=== PATIENT | female | born 1960 | race Caucasian/White ===

== ENCOUNTER 2017-09-24 12:34 | Emergency (ER) | payer BC ==
[2017-09-24] MEDS ORDERED: ASPIRIN 81 MG CHEWABLE TABLET ONE (13:20)
--- NOTE | 2017-09-24 13:22 | EKG ---
Test Date: 2017-09-24 Test Time: 12:43:47 Weight And Balance Control Agent: ARELIS MEASUREMENT RESULTS: Intervals: Rate: 87 MO: 154 QRSD: 76 QT: 388 QTc: 466 [place]: P: 54 MO: 154 QRS: 42 T: 64 INTERPRETIVE STATEMENTS: Normal sinus rhythm Normal ECG Compared to ECG 09/21/2010 13:46:33 Sinus bradycardia no longer present Electronically Signed On 09-24-17 13:22:08 CDT by Aime Galidno
[2017-09-24 13:26] LABS: Absolute Lymphocytes (CBC) 1.9 K/uL (0.7-4.9); Absolute Monocytes 0.5 K/uL (0.1-1.3); Absolute Neutrophil 3.9 K/uL (1.8-8.0); Basophils % 0.5 % (0-1.3); Eosinophils % 0.8 % (0-4.4); Lymphocytes % 29.4 % (15.3-44.8); MCH 30.5 pg (27.0-35.0); MCV 88.4 fL (80-100); MPV 7.7 fL (7.6-11.3); RBC Red Blood Cell Count 4.86 M/uL (3.86-4.86)
[2017-09-24 13:36] LABS: Protime INR 0.94
[2017-09-24 13:46] LABS: ALT/SGPT 74 U/L (12-78); AST/SGOT 52 U/L (15-37); Albumin 4.4 g/dL (3.4-5.0); Alkaline Phosphatase 115 U/L (45-117); BUN Blood Urea Nitrogen 9 mg/dL (7-18); Bicarbonate 23 mmol/L (21-32); Bilirubin Direct 0.1 mg/dL (0-0.2); Bilirubin Total 0.5 mg/dL (0.2-1.0); CKMB Creatine Kinase MB < 1.0 ng/mL (0.3-3.6); Creatine Phosphokinase 101 U/L (26-192); Glucose Level 115 mg/dL (74-106); Magnesium 2.3 mg/dL (1.8-2.4); NT PRO-BNP 11 pg/mL (<125); Potassium 3.3 mmol/L (3.5-5.1); Protein, Total 7.4 g/dL (6.4-8.2); Sodium Level 139 mmol/L (136-145)
--- NOTE | 2017-09-24 14:30 | RAD REPORT ---
EXAM DESCRIPTION: [place] Single View09/24/2017 2:06 pm CLINICAL HISTORY: Chest pain COMPARISON: March 2016 FINDINGS: The lungs appear clear of acute infiltrate. The heart is normal size IMPRESSION: No acute abnormalities displayed
--- NOTE | 2017-09-24 16:33 | ER ---
Nurse's Notes [facility] Name: Karley Trent Age: 56 yrs Sex: Female : 1960 Arrival Date: 09/24/2017 Time: 12:41 Bed 23 Private MD: Diagnosis: Chest pain, unspecified Presentation: 09/24 12:42 Presenting complaint: Patient states: chest pain that began approx 40 minutes ago ss 10/10, resolved within thirty minutes. Upon EMS arrival, pain was 2/10. Transition of care: patient was not received from another setting of care. Onset of symptoms was September 24, 2017. Risk Assessment: Do you want to hurt yourself or someone else? Patient reports no desire to harm self or others. Initial Sepsis Screen: Does the patient meet any 2 criteria? No. Patient's initial sepsis screen is negative. Does the patient have a suspected source of infection? No. Patient's initial sepsis screen is negative. Care prior to arrival: Medication(s) given: ASA, 325 mg, x 1. 12:42 Method Of Arrival: EMS: [facility] ss 12:42 Acuity: YEIMI 3 ss Historical: - Allergies: 12:44 No Known Allergies; ss - Home Meds: 12:44 None [Active]; ss - PMHx: 12:44 None; ss - PSHx: 12:44 Tonsillectomy; Adenoids; ovarian cyst rupture; Cholecystectomy; ss - Immunization history:: Adult Immunizations up to date. - Social history:: Smoking status: Patient/guardian denies using tobacco. - Ebola Screening: : Patient denies exposure to infectious person Patient denies travel to an Ebola-affected area in the 21 days before illness onset. Screenin:44 Abuse screen: Denies threats or abuse. Denies injuries from another. Nutritional ss screening: No deficits noted. Tuberculosis screening: Never had TB. Fall Risk None identified. Assessment: 12:44 General: Appears in no apparent distress. comfortable, Behavior is cooperative, ss tearful. Pt states, "I feel stupid because it's probably nothing. I should have just sat on the side of the road until it passed." Pt has been given verbal reassurance.. Pain: Complains of pain in mid-sternal area Pain does not radiate. Pain currently is 0 out of 10 on a pain scale. at worst was 10 out of 10 on a pain scale. 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 Neuro: Level of Consciousness is awake, alert, obeys commands, Oriented to person, place, Tone Artist Apprentice are equal bilaterally Facial symmetry appears normal. Cardiovascular: Capillary refill < 3 seconds is brisk in bilateral fingers Pulses are palpable in right radial artery, right dorsalis pedis artery, left radial artery and left dorsalis pedis artery Edema is absent. Respiratory: Airway is patent Respiratory effort is even, unlabored, Respiratory pattern is regular, symmetrical, Breath sounds are clear bilaterally. Denies cough, shortness of breath pain with respiration, pain with cough, pain with movement. GI: No deficits noted. EENT: Nares are clear Oral mucosa is moist. Throat is clear. Derm: Skin is intact, is healthy with good turgor, Skin is dry, Skin is pink, warm \\T\\ dry. normal. 13:45 Reassessment: Patient appears in no apparent distress at this time. Patient and/or kr2 family updated on plan of care and expected duration. Pain level reassessed. Patient is alert, oriented x 3, equal unlabored respirations, skin warm/dry/pink. Patient denies pain at this time. Patient states feeling better. Patient states symptoms have improved. 14:30 Reassessment: Patient appears in no apparent distress at this time. Patient and/or kr2 family updated on plan of care and expected duration. Pain level reassessed. Patient is alert, oriented x 3, equal unlabored respirations, skin warm/dry/pink. Patient denies pain at this time. Patient states feeling better. Patient states symptoms have improved. 15:30 Reassessment: Patient appears in no apparent distress at this time. Patient and/or kr2 family updated on plan of care and expected duration. Pain level reassessed. Patient is alert, oriented x 3, equal unlabored respirations, skin warm/dry/pink. Patient denies pain at this time. Patient states feeling better. Patient states symptoms have improved. 16:30 Reassessment: Patient appears in no apparent distress at this time. Patient and/or kr2 family updated on plan of care and expected duration. Pain level reassessed. Patient is alert, oriented x 3, equal unlabored respirations, skin warm/dry/pink. Patient denies pain at this time. Patient states feeling better. Patient states symptoms have improved. Vital Signs: 12:41 BP 133 / 73; Pulse 77; Resp 17; Temp 98.1(O); Pulse Ox 100% on R/A; Height 5 ft. 4 in. ss (162.56 cm); Pain 0/10; 13:30 BP 130 / 70; Pulse 78; Resp 16; Pulse Ox 100% on R/A; kr2 14:35 BP 128 / 76; Pulse 74; Resp 17; Pulse Ox 99% on R/A; kr2 15:30 BP 136 / 70; Pulse 74; Resp 17; Pulse Ox 100% on R/A; kr2 16:30 BP 125 / 70; Pulse 78; Resp 17; Pulse Ox 99% on R/A; kr2 Vitals: 12:44 Cardiac Rhythm Assessment Regular Sinus rhythm. ED Course: 12:41 Patient arrived in ED. ss 12:43 Triage completed. ss 12:44 Arm band placed on right wrist. ss 12:44 Patient has correct armband on for positive identification. Bed in low position. Call ss light in reach. Side rails up X 1. web press operator helper offset on. Pulse ox on. NIBP on. Warm blanket given. 12:44 Patient maintains SpO2 saturation greater than 95% on room air. ss 12:51 Sandra Lomeli FNP-C is [facility]. snw 12:51 Blaine Quinones MD is Attending Physician. snw 12:59 Claudia Smith RN is Primary Nurse. ss 13:00 Inserted saline lock: 20 gauge in right antecubital area, using aseptic technique. ss Blood collected. 13:58 X-ray completed. Portable x-ray completed in exam room. Patient tolerated procedure jb2 well. 14:00 XRAY Chest (1 view) In Process Unspecified. EDMS 16:13 EKG done, by personnel technician. reviewed by Sandra OVERTON. sm3 17:00 No provider procedures requiring assistance completed. IV discontinued, intact, kr2 bleeding controlled, No redness/swelling at site. Pressure dressing applied. Administered Medications: 13:35 Drug: Aspirin Chewable Tablet 324 mg Route: PO; kr2 15:54 Follow up: Response: No adverse reaction kr2 Outcome: 16:33 Discharge ordered by . snw 17:00 Discharged to home ambulatory. kr2 17:00 Condition: good 17:00 Discharge instructions given to patient, Instructed on discharge instructions, follow up and referral plans. medication usage, Demonstrated understanding of instructions, follow-up care, medications, Prescriptions given X 1. 17:15 Patient left the ED. kr2 Signatures: Dispatcher [employer] EDMS Sandra Lomeli, MARSHA-C BASEBALL INSPECTOR-Csnw Alfredito Carr2 Claudia Smith RN RN Haylie Rodriguez RN RN kr2 Erum Gonzalez 3 Corrections: (The following items were deleted from the chart) 12:48 12:42 Care prior to arrival: None. [facility] 20:39 16:30 Reassessment: Patient appears in no apparent distress at this time. Patient kr2 and/or family updated on plan of care and expected duration. Pain level reassessed. Patient is alert, oriented x 3, equal unlabored respirations, skin warm/dry/pink. Patient denies pain at this time. kr2
--- NOTE | 2017-09-24 16:33 | EDPHYS ---
Physician Documentation [facility] Name: Karley Trent Age: 56 yrs Sex: Female : 1960 Arrival Date: 09/24/2017 Time: 12:41 Bed 23 Private MD: ED Physician Blaine Quinones HPI: 09/24 13:08 This 56 yrs old Female presents to ER via EMS with complaints of Chest Pain. snw 13:08 Onset: The symptoms/episode began/occurred acutely, just prior to arrival, and improved snw 10 minutes prior to arrival. Associated signs and symptoms: The patient has no apparent associated signs or symptoms. Modifying factors: The patient symptoms are alleviated by rest. The patient has not experienced similar symptoms in the past. The patient has not recently seen a physician, sees Dr. Spicer. Historical: - Allergies: 12:44 No Known Allergies; ss - Home Meds: 12:44 None [Active]; ss - PMHx: 12:44 None; ss - PSHx: 12:44 Tonsillectomy; Adenoids; ovarian cyst rupture; Cholecystectomy; ss - Immunization history:: Adult Immunizations up to date. - Social history:: Smoking status: Patient/guardian denies using tobacco. - Ebola Screening: : Patient denies exposure to infectious person Patient denies travel to an Ebola-affected area in the 21 days before illness onset. ROS: 13:07 Constitutional: Negative for fever, chills, and weight loss, Eyes: Negative for injury, snw pain, redness, and discharge, ENT: Negative for injury, pain, and discharge, Neck: Negative for injury, pain, and swelling. 13:07 Respiratory: Negative for shortness of breath, cough, wheezing, and pleuritic chest pain. 13:07 Back: Negative for injury and pain, : Negative for injury, bleeding, discharge, and swelling, MS/Extremity: Negative for injury and deformity, Skin: Negative for injury, rash, and discoloration. 13:07 Cardiovascular: Positive for chest pain. 13:07 Abdomen/GI: Positive for nausea. 13:07 Neuro: Positive for dizziness. Exam: 13:07 Constitutional: This is a well developed, well nourished patient who is awake, alert, snw and in no acute distress. Head/Face: Normocephalic, atraumatic. Eyes: Pupils equal round and reactive to light, extra-ocular motions intact. Lids and lashes normal. Conjunctiva and sclera are non-icteric and not injected. Cornea within normal limits. Periorbital areas with no swelling, redness, or edema. ENT: Nares patent. No nasal discharge, no septal abnormalities noted. Tympanic membranes are normal and external auditory canals are clear. Oropharynx with no redness, swelling, or masses, exudates, or evidence of obstruction, uvula midline. Mucous membranes moist. Neck: Trachea midline, no thyromegaly or masses palpated, and no cervical lymphadenopathy. Supple, full range of motion without nuchal rigidity, or vertebral point tenderness. No Meningismus. Chest/axilla: Normal chest wall appearance and motion. Nontender with no deformity. No lesions are appreciated. Cardiovascular: Regular rate and rhythm with a normal S1 and S2. No gallops, murmurs, or rubs. Normal PMI, no JVD. No pulse deficits. Respiratory: Lungs have equal breath sounds bilaterally, clear to auscultation and percussion. No rales, rhonchi or wheezes noted. No increased work of breathing, no retractions or nasal flaring. Abdomen/GI: Soft, non-tender, with normal bowel sounds. No distension or tympany. No guarding or rebound. No evidence of tenderness throughout. Back: No spinal tenderness. No costovertebral tenderness. Full range of motion. Skin: Warm, dry with normal turgor. Normal color with no rashes, no lesions, and no evidence of cellulitis. MS/ Extremity: Pulses equal, no cyanosis. Neurovascular intact. Full, normal range of motion. Neuro: Awake and alert, GCS 15, oriented to person, place, time, and situation. Cranial nerves II-XII grossly intact. Motor strength 5/5 in all extremities. Sensory grossly intact. Cerebellar exam normal. Normal gait. Psych: Awake, alert, with orientation to person, place and time. Behavior, mood, and affect are within normal limits. Vital Signs: 12:41 BP 133 / 73; Pulse 77; Resp 17; Temp 98.1(O); Pulse Ox 100% on R/A; Height 5 ft. 4 in. ss (162.56 cm); Pain 0/10; 13:30 BP 130 / 70; Pulse 78; Resp 16; Pulse Ox 100% on R/A; kr2 14:35 BP 128 / 76; Pulse 74; Resp 17; Pulse Ox 99% on R/A; kr2 15:30 BP 136 / 70; Pulse 74; Resp 17; Pulse Ox 100% on R/A; kr2 16:30 BP 125 / 70; Pulse 78; Resp 17; Pulse Ox 99% on R/A; kr2 MDM: 12:51 Patient medically screened. snw 16:34 Data reviewed: vital signs, nurses notes. Data interpreted: Pulse oximetry: on room air snw is 100 %. Interpretation: normal. Counseling: I had a detailed discussion with the patient and/or guardian regarding: the historical points, exam findings, and any diagnostic results supporting the discharge/admit diagnosis, lab results, radiology results, the need for outpatient follow up, to return to the emergency department if symptoms worsen or persist or if there are any questions or concerns that arise at home. Special discussion: Based on the patient's history, exam, and Dx evaluation, there is no indication for emergent intervention or inpatient Tx. It is understood by the patient/guardian that if the Sx's persist or worsen they need to return immediately for re-evaluation. Based on the history and exam findings, there is no indication for further emergent testing or inpatient evaluation. I discussed with the patient/guardian the need to see the geospatial information scientist for further evaluation of the symptoms. I discussed with the patient/guardian the need to see the primary care provider for further evaluation of the symptoms. 09/24 13:02 Order name: Basic Metabolic Panel; Complete Time: 13:46 w 09/24 14:39 Interpretation: CRE 0.90. [facility] 09/24 13:02 Order name: CBC with Diff; Complete Time: 13:31 w 09/24 13:02 Order name: Ckmb; Complete Time: 13:46 snw 09/24 13:02 Order name: CPK; Complete Time: 13:46 w 09/24 13:02 Order name: LFT's; Complete Time: 13:46 w 09/24 13:02 Order name: Magnesium; Complete Time: 13:46 w 09/24 13:02 Order name: NT PRO-BNP; Complete Time: 13:46 w 09/24 13:02 Order name: PT-INR; Complete Time: 13:46 snw 09/24 13:02 Order name: Ptt, Activated; Complete Time: 13:46 snw 09/24 13:02 Order name: Troponin (emerg Dept Use Only); Complete Time: 13:46 snw 09/24 13:02 Order name: XRAY Chest (1 view); Complete Time: 14:39 snw 09/24 13:02 Order name: EKG; Complete Time: 13:03 snw 09/24 15:53 Order name: Troponin (emerg Dept Use Only); Complete Time: 16:32 kr2 09/24 13:02 Order name: Cardiac monitoring; Complete Time: 13:57 snw 09/24 13:02 Order name: EKG - Nurse/Tech; Complete Time: 13:57 snw 09/24 13:02 Order name: IV Saline Lock; Complete Time: 13:57 snw 09/24 13:02 Order name: Labs collected and sent; Complete Time: 13:57 snw 09/24 13:02 Order name: O2 Per Protocol; Complete Time: 13:57 snw 09/24 13:02 Order name: O2 Sat Monitoring; Complete Time: 13:57 snw 09/24 13:47 Order name: Repeat Cardiac Enzymes at; Complete Time: 15:54 snw 09/24 15:55 Order name: EKG; Complete Time: 15:56 snw Administered Medications: 13:35 Drug: Aspirin Chewable Tablet 324 mg Route: PO; kr2 15:54 Follow up: Response: No adverse reaction kr2 Disposition: 09/25 09:45 Co-signature as Attending Physician, Blaine Quinones MD I agree with the assessment and howard plan of care. Disposition: 09/24/17 16:33 Discharged to Home. Impression: Chest pain, unspecified. - Condition is Stable. - Discharge Instructions: Nonspecific Chest Pain, Potassium Content of Foods, Aspirin and Your Heart, Heart-Healthy Eating Plan. - Prescriptions for Protonix 40 mg Oral Tablet - take 1 tablet by ORAL route once daily; 30 tablet. - Work release form, Medication Reconciliation Form, Thank You Letter, Antibiotic Education, Prescription Opioid Use form. - Follow up: Private Physician; When: 2 - 3 days; Reason: Recheck today's complaints, Continuance of care, Re-evaluation by your physician. Follow up: Emergency Department; When: As needed; Reason: Worsening of condition. Signatures: Dispatcher [employer] EDMS Blaine Quinones MD MD cha Therrien, Shelly, PARTS COORDINATOR-C PARTS COORDINATOR-Csnw Claudia Smith RN RN ss Haylie Rodriguez RN RN kr2 Corrections: (The following items were deleted from the chart) 09/24 17:12 13:02 Urine Dipstick-Ancillary ordered. snw kr2 17:15 16:33 09/24/2017 16:33 Discharged to Home. Impression: Chest pain, unspecified. kr2 Condition is Stable. Discharge Instructions: Nonspecific Chest Pain, Aspirin and Your Heart, Heart-Healthy Eating Plan, Potassium Content of Foods. Prescriptions for Protonix 40 mg Oral Tablet - take 1 tablet by ORAL route once daily; 30 tablet. and Forms are Medication Reconciliation Form, Thank You Letter, Antibiotic Education, Prescription Opioid Use. Follow up: Private Physician; When: 2 - 3 days; Reason: Recheck today's complaints, Continuance of care, Re-evaluation by your physician. Follow up: Emergency Department; When: As needed; Reason: Worsening of condition. snw
--- NOTE | 2017-09-24 20:36 | EKG ---
Test Date: 2017-09-24 Test Time: 16:00:37 Computer Networker: GABRIELA MEASUREMENT RESULTS: Intervals: Rate: 75 UT: 152 QRSD: 70 QT: 410 QTc: 457 [place]: P: 52 UT: 152 QRS: 45 T: 55 INTERPRETIVE STATEMENTS: Normal sinus rhythm Normal ECG Compared to ECG 09/24/2017 12:43:47 No significant changes Electronically Signed On 09-24-17 20:35:37 CDT by Aime Galindo
== END 2017-09-24 17:15 | disposition home or self-care (01) ==
LOC: ER 12:34
DX: R07.9 Chest pain, unspecified (principal)
CPT/HCPCS: 36415; 71045; 80048; 80076; 82550; 82553; 83735; 83880; 84484; 85025; 85610; 85730; 93005; 99285

== ENCOUNTER 2020-10-06 12:39 | Emergency (ER) | payer OTHER ==
--- NOTE | 2020-10-06 16:13 | RAD REPORT ---
EXAM DESCRIPTION: RAD - Chest Single View - 10/06/2020 3:54 pm CLINICAL HISTORY: Cough;Dyspnea COMPARISON: Chest Single View dated 09/24/2017; Chest Pa And Lat (2 Views) dated 03/13/2016; CHEST PA A ND LAT 2 VIEW dated 01/26/2015; CHEST PA AND LAT 2 VIEW dated 05/20/2013 FINDINGS: No evidence of edema or pneumonia. The heart size is within normal limits.No acute osseous abnormality. No significant pleural effusions or pneumothorax. IMPRESSION: No acute cardiopulmonary disease.
[2020-10-06] MEDS ORDERED: IPRATROPIUM BROM 0.5MG/2.5ML ONE (16:18)
[2020-10-06] MEDS ORDERED: FAMOTIDINE 20 MG/2 ML VIAL IV ONE (16:18)
[2020-10-06] MEDS ORDERED: LEVALBUTEROL 1.25 MG/3 ML NEB ONE (16:18)
[2020-10-06] MEDS ORDERED: METHYLPREDNISOLONE 125 MG INJ ONE (16:18)
[2020-10-06 16:41] LABS: Absolute Lymphocytes (CBC) 1.8 K/uL (0.7-4.9); Basophils % 0.2 % (0-1.3); Hematocrit 42.6 % (36.0-45.0); Lymphocytes % 16.1 % (15.3-44.8); MPV 7.3 fL (7.6-11.3)
[2020-10-06 16:50] LABS: Protime INR 0.97
[2020-10-06 17:15] LABS: ALT/SGPT 63 U/L (12-78); AST/SGOT 17 U/L (15-37); Albumin 4.4 g/dL (3.4-5.0); Alkaline Phosphatase 141 U/L (45-117); BUN Blood Urea Nitrogen 16 mg/dL (7-18); Bicarbonate 21 mmol/L (21-32); Bilirubin Direct 0.1 mg/dL (0-0.2); Bilirubin Total 0.4 mg/dL (0.2-1.0); Glucose Level 125 mg/dL (74-106); Magnesium 2.4 mg/dL (1.8-2.4); NT PRO-BNP 50 pg/mL (<125); Potassium 3.7 mmol/L (3.5-5.1); Protein, Total 7.8 g/dL (6.4-8.2); Sodium Level 140 mmol/L (136-145); Troponin (Emerg Dept Use Only) < 0.02 ng/mL (0.0-0.045)
--- NOTE | 2020-10-06 17:44 | RAD REPORT ---
EXAM DESCRIPTION: CT - Chest For Pe Angio - 10/06/2020 5:35 pm CLINICAL HISTORY: Congestion;Cough COMPARISON: No comparisons FINDINGS: Chest Wall: No suspicious thyroid nodules or pathologic lymphadenopathy. Lungs: No acute abnormality. Pleura: No significant effusions or pneumothorax. Mediastinum/prashanth: No pathologic lymphadenopathy. Pulmonary arteries/Aorta: No filling defect identified. No aortic aneurysm. Heart: No significant pericardial effusion. Normal heart size. Upper abdomen: Multiple benign-appearing low-density liver lesions noted. Bones: No acute abnormality. IMPRESSION: Negative for pulmonary embolism. No acute findings.
--- NOTE | 2020-10-06 17:48 | EDPHYS ---
Physician Documentation [facility] Name: Karley Trent Age: 59 yrs Sex: Female : 1960 Arrival Date: 10/06/2020 Time: 12:39 Bed 30 Private MD: ED Physician Blaine Quinones HPI: 10/06 15:26 This 59 yrs old Female presents to ER via Ambulatory with complaints of howard Breathing Difficulty. 15:26 The patient has shortness of breath with light activity. Onset: The symptoms/episode howard began/occurred 10 day(s) ago. Historical: - Allergies: 12:58 Sudafed; ss - PMHx: 12:58 GERD; Hypertensive disorder; ss - PSHx: 12:58 Cholecystectomy; gardeners cyst; ss - Immunization history:: Client reports receiving the 2nd dose of the Covid vaccine, Flu vaccine is not up to date. - Social history:: Smoking status: Patient denies any tobacco usage or history of. ROS: 15:27 Constitutional: Negative for fever, chills, and weight loss, Eyes: Negative for injury, howard pain, redness, and discharge, ENT: Negative for injury, pain, and discharge, Neck: Negative for injury, pain, and swelling, Cardiovascular: Negative for chest pain, palpitations, and edema, Abdomen/GI: Negative for abdominal pain, nausea, vomiting, diarrhea, and constipation, Back: Negative for injury and pain, : Negative for injury, bleeding, discharge, and swelling, MS/Extremity: Negative for injury and deformity, Skin: Negative for injury, rash, and discoloration, Neuro: Negative for headache, weakness, numbness, tingling, and seizure, Psych: Negative for depression, anxiety, suicide ideation, homicidal ideation, and hallucinations, Allergy/Immunology: Negative for hives, rash, and allergies, Endocrine: Negative for neck swelling, polydipsia, polyuria, polyphagia, and marked weight changes, Hematologic/Lymphatic: Negative for swollen nodes, abnormal bleeding, and unusual bruising. 15:27 Respiratory: Positive for cough, shortness of breath, at rest. Exam: 15:27 Constitutional: This is a well developed, well nourished patient who is awake, alert, howard and in no acute distress. Head/Face: Normocephalic, atraumatic. Eyes: Pupils equal round and reactive to light, extra-ocular motions intact. Lids and lashes normal. Conjunctiva and sclera are non-icteric and not injected. Cornea within normal limits. Periorbital areas with no swelling, redness, or edema. ENT: Nares patent. No nasal discharge, no septal abnormalities noted. Tympanic membranes are normal and external auditory canals are clear. Oropharynx with no redness, swelling, or masses, exudates, or evidence of obstruction, uvula midline. Mucous membranes moist. Neck: Trachea midline, no thyromegaly or masses palpated, and no cervical lymphadenopathy. Supple, full range of motion without nuchal rigidity, or vertebral point tenderness. No Meningismus. Chest/axilla: Normal chest wall appearance and motion. Nontender with no deformity. No lesions are appreciated. Cardiovascular: Regular rate and rhythm with a normal S1 and S2. No gallops, murmurs, or rubs. Normal PMI, no JVD. No pulse deficits. Abdomen/GI: Soft, non-tender, with normal bowel sounds. No distension or tympany. No guarding or rebound. No evidence of tenderness throughout. Back: No spinal tenderness. No costovertebral tenderness. Full range of motion. Female : Normal external genitalia. Skin: Warm, dry with normal turgor. Normal color with no rashes, no lesions, and no evidence of cellulitis. MS/ Extremity: Pulses equal, no cyanosis. Neurovascular intact. Full, normal range of motion. Neuro: Awake and alert, GCS 15, oriented to person, place, time, and situation. Cranial nerves II-XII grossly intact. Motor strength 5/5 in all extremities. Sensory grossly intact. Cerebellar exam normal. Normal gait. Psych: Awake, alert, with orientation to person, place and time. Behavior, mood, and affect are within normal limits. 15:27 Respiratory: the patient does not display signs of respiratory distress, Respirations: labored breathing, is not present, Breath sounds: bronchial sounds, that are mild, are scattered, decreased breath sounds, that are mild, are scattered, rhonchi, that are mild, stridor, is not appreciated, Respiratory rate: 24 17:48 ECG was reviewed by the Attending Physician. howard Vital Signs: 12:55 BP 145 / 80; Pulse 97; Resp 24; Temp 97.9; Pulse Ox 98% ; Weight 86.64 kg; Height 5 ft. ss 4 in. (162.56 cm); Pain 0/10; 15:42 BP 141 / 94; Pulse 59; Resp 24; Pulse Ox 99% on R/A; ld1 17:17 BP 138 / 88; Pulse 59; Resp 24; Pulse Ox 98% on R/A; ld1 12:55 Body Mass Index 32.78 (86.64 kg, 162.56 cm) ss MDM: 14:50 Patient medically screened. [facility] 15:30 Differential diagnosis: asthma, Bronchitis CHF exacerbation, Chronic Obstructive howard Pulmonary Disease pneumonia, pulmonary edema, Pulmonary Embolism reactive airway disease, Sepsis. Antibiotic administration: Not indicated. The patient's Wells Deep Vein Thrombosis Score was calculated as follows: Total Score: 0-2 Pts- Low Risk. The patient's pulmonary embolism risk score was calculated as follows: Total Score: 0-2 points. This patient was found to be at low risk for a pulmonary embolism by using the Well's assessment criteria. Immunization status: Influenza vaccine: within last 5 years. Data reviewed: vital signs, nurses notes, lab test result(s), EKG, radiologic studies, CT scan, plain films. Data interpreted: bus monitor: rate is 97 beats/min, rhythm is regular, Pulse oximetry: on room air is 98 %. Test interpretation: by ED physician or midlevel provider: ECG, plain radiologic studies. Counseling: I had a detailed discussion with the patient and/or guardian regarding: the historical points, exam findings, and any diagnostic results supporting the discharge/admit diagnosis, lab results, radiology results. 10/06 15:21 Order name: Basic Metabolic Panel; Complete Time: 17:44 [facility] 10/06 15:21 Order name: CBC with Diff; Complete Time: 17:01 [facility] 10/06 15:21 Order name: LFT's; Complete Time: 17:44 [facility] 10/06 15:21 Order name: Magnesium; Complete Time: 17:44 [facility] 10/06 15:21 Order name: NT PRO-BNP; Complete Time: 17:44 [facility] 10/06 15:21 Order name: PT-INR; Complete Time: 17:01 [facility] 10/06 15:21 Order name: Troponin (emerg Dept Use Only); Complete Time: 17:44 [facility] 10/06 15:21 Order name: XRAY Chest (1 view); Complete Time: 17:01 [facility] 10/06 15:24 Order name: Blood Culture Adult (2) [facility] 10/06 15:24 Order name: CT Chest For PE Angio; Complete Time: 17:45 [facility] 10/06 17:53 Order name: SARS-COV-2 RT PCR EDMS 10/06 15:21 Order name: EKG; Complete Time: 15:22 [facility] 10/06 15:21 Order name: Cardiac monitoring; Complete Time: 15:53 [facility] 10/06 15:21 Order name: EKG - Nurse/Tech; Complete Time: 17:16 [facility] 10/06 15:21 Order name: IV Saline Lock; Complete Time: 16:20 [facility] 10/06 15:21 Order name: Labs collected and sent; Complete Time: 16:20 [facility] 10/06 15:21 Order name: O2 Per Protocol; Complete Time: 15:53 [facility] 10/06 15:21 Order name: O2 Sat Monitoring; Complete Time: 15:53 [facility] EC:48 Rate is 67 beats/min. Rhythm is regular. QRS [place] is Normal. IN interval is normal. QRS howard interval is normal. QT interval is normal. No Q waves. T waves are Normal. No ST changes noted. Clinical impression: Normal ECG and No evidence of ischemia. Interpreted by me. Reviewed by me. Administered Medications: 16:19 Drug: SOLU-Medrol (methylPrednisoLONE) 125 mg Route: IVP; Site: right antecubital; ld1 16:19 Drug: Xopenex (levalbuterol) 1.25 mg Route: Inhalation; ld1 16:19 Drug: AtroVENT (ipratropium) Aerosol 0.5 mg Route: Inhalation; ld1 16:19 Drug: Pepcid (famotidine) 20 mg Route: IVP; Site: right antecubital; ld1 Disposition Summary: 10/06/20 17:47 Discharge Ordered Location: Home howard Problem: new howard Symptoms: have improved howard Condition: Stable howard Diagnosis - Acute upper respiratory infection, unspecified howard - Mild intermittent asthma howard Followup: howard - With: Private Physician - When: 2 - 3 days - Reason: Recheck today's complaints, Continuance of care, Re-evaluation by your physician Followup: howard - With: Chris Gutierrez MD - When: 2 - 3 days - Reason: Recheck today's complaints, Re-evaluation by your physician Discharge Instructions: - Discharge Summary Sheet howard - Upper Respiratory Infection, Adult howard - Cool Mist Vaporizer howard - Upper Respiratory Infection, Adult, [id number] howard - Cough, Adult, [id number] howard - Aspirin and Your Heart howard Forms: - Medication Reconciliation Form howard - Thank You Letter howard - Antibiotic Education howard - Prescription Opioid Use howard Prescriptions: - albuterol sulfate 90 mcg/actuation Inhalation HFA aerosol inhaler - inhale 2 puff by INHALATION route every 4-6 hours; 1 puff; Refills: 0, Product howard Selection Permitted - Zithromax Z-Royal 250 mg Oral Tablet - take 1 tablet by ORAL route as directed for 5 days Day 1 - take two (2) tablets howard one time. Day 2, 3, 4 , 5 take one (1) tablet once daily.; 6 tablet; Refills: 0, Product Selection Permitted - Medrol (Royal) 4 mg Oral Tablets, Dose Pack - take 1 tablet by ORAL route as directed - follow package instructions; 1 howard packet; Refills: 0, Product Selection Permitted Signatures: Dispatcher [employer] EDBlaine Harrell MD MD cha Smirch, Shelby, RN RN Mayra Metcalf RN RN ld1 Corrections: (The following items were deleted from the chart) 12:59 12:44 Allergies: No Known Allergies; [facility] 16:42 15:24 CORONAVIRUS+BRZ ordered. [facility] EDMS
--- NOTE | 2020-10-06 17:48 | ER ---
Nurse's Notes [facility] Name: Karley Trent Age: 59 yrs Sex: Female : 1960 Arrival Date: 10/06/2020 Time: 12:39 Bed 30 Private MD: Diagnosis: Acute upper respiratory infection, unspecified;Mild intermittent asthma Presentation: 10/06 12:55 Chief complaint: Patient states: SOB for 2 weeks. O2 sat. 91-94% at home. Sent by Dr. sahara Spicer. No fevers. Coronavirus screen: Client denies travel out of the [place] in the last 14 days. cough unrelated to allergies, difficulty breathing, shortness of breath, Client presents with at least one sign or symptom that may indicate coronavirus-19. Standard/surgical mask placed on the client. Ebola Screen: Patient denies travel to an Ebola-affected area in the 21 days before illness onset. Initial Sepsis Screen: Does the patient meet any 2 criteria? HR > 90 bpm. No. Patient's initial sepsis screen is negative. Does the patient have a suspected source of infection? Yes: Productive cough/pneumonia. Risk Assessment: Do you want to hurt yourself or someone else? Patient reports no desire to harm self or others. Onset of symptoms was September 24, 2020. 12:55 Method Of Arrival: Ambulatory 12:55 Acuity: YEIMI 3 ss Triage Assessment: 17:58 General: Appears in no apparent distress. comfortable. Respiratory: Reports shortness ld1 of breath Onset: The symptoms/episode began/occurred yesterday. Respiratory: the patient has mild shortness of breath. Historical: - Allergies: 12:58 Sudafed; ss - PMHx: 12:58 GERD; Hypertensive disorder; ss - PSHx: 12:58 Cholecystectomy; gardeners cyst; ss - Immunization history:: Client reports receiving the 2nd dose of the Covid vaccine, Flu vaccine is not up to date. - Social history:: Smoking status: Patient denies any tobacco usage or history of. Screenin:42 Abuse screen: Denies threats or abuse. Denies injuries from another. Nutritional ld1 screening: No deficits noted. Tuberculosis screening: No symptoms or risk factors identified. Fall Risk None identified. Assessment: 15:42 General: Appears in no apparent distress. comfortable, Behavior is calm, cooperative, ld1 appropriate for age. Pain: Denies pain. Neuro: Level of Consciousness is awake, alert, obeys commands, Oriented to person, place, time, situation. Cardiovascular: Capillary refill < 3 seconds Patient's skin is warm and dry. Rhythm is sinus bradycardia. Respiratory: Airway is patent Respiratory effort is even, unlabored, Respiratory pattern is regular, symmetrical, Breath sounds are clear bilaterally. GI: Abdomen is flat, non-distended. : No signs and/or symptoms were reported regarding the genitourinary system. EENT: No signs and/or symptoms were reported regarding the EENT system. Derm: No signs and/or symptoms reported regarding the dermatologic system. Musculoskeletal: No signs and/or symptoms reported regarding the musculoskeletal system. 17:17 Reassessment: Patient appears in no apparent distress at this time. No changes from ld1 previously documented assessment. Patient and/or family updated on plan of care and expected duration. Pain level reassessed. Patient is alert, oriented x 3, equal unlabored respirations, skin warm/dry/pink. Vital Signs: 12:55 BP 145 / 80; Pulse 97; Resp 24; Temp 97.9; Pulse Ox 98% ; Weight 86.64 kg; Height 5 ft. ss 4 in. (162.56 cm); Pain 0/10; 15:42 BP 141 / 94; Pulse 59; Resp 24; Pulse Ox 99% on R/A; ld1 17:17 BP 138 / 88; Pulse 59; Resp 24; Pulse Ox 98% on R/A; ld1 12:55 Body Mass Index 32.78 (86.64 kg, 162.56 cm) ED Course: 12:39 Patient arrived in ED. ds1 12:44 Arm band placed on. ss 12:58 Triage completed. ss 14:50 Blaine Quinones MD is Attending Physician. howard 15:42 Mayra Metcalf, KAREN is Primary Nurse. ld1 15:42 Patient has correct armband on for positive identification. Bed in low position. Call ld1 light in reach. Side rails up X2. patient sitter on. Pulse ox on. NIBP on. Door closed. Noise minimized. Warm blanket given. 15:42 No provider procedures requiring assistance completed. Inserted Accessed. Accessed. ld1 15:54 XRAY Chest (1 view) In Process Unspecified. EDMS 17:35 CT Chest For PE Angio In Process Unspecified. EDMS 17:46 Chris Gutierrez MD is Referral Physician. [facility] 17:58 IV discontinued, intact, bleeding controlled, No redness/swelling at site. ld1 Administered Medications: 16:19 Drug: SOLU-Medrol (methylPrednisoLONE) 125 mg Route: IVP; Site: right antecubital; ld1 16:19 Drug: Xopenex (levalbuterol) 1.25 mg Route: Inhalation; ld1 16:19 Drug: AtroVENT (ipratropium) Aerosol 0.5 mg Route: Inhalation; ld1 16:19 Drug: Pepcid (famotidine) 20 mg Route: IVP; Site: right antecubital; ld1 Outcome: 17:47 Discharge ordered by . [facility] 17:58 Discharged to home ambulatory. ld1 17:58 Condition: stable 17:58 Discharge instructions given to patient, Instructed on discharge instructions, follow up and referral plans. medication usage, Demonstrated understanding of instructions, follow-up care, medications, Prescriptions given X 3. 17:59 Patient left the ED. ld1 Signatures: Dispatcher [employer] EDSD Blaine Quinones MD MD cha [place], Demi ds1 Claudia Smith RN RN Mayra Metcalf, KAREN RN ld1 Corrections: (The following items were deleted from the chart) 12:59 12:44 Allergies: No Known Allergies; [facility] 16:42 16:20 CORONAVIRUS+ drawn and sent. ld1 EDSD
[2020-10-06 18:05] VITALS: TEMP 97.9
[2020-10-06 18:11] VITALS: BP 138/88; O2SAT 98
== END 2020-10-06 17:59 | disposition home or self-care (01) ==
LOC: ER 12:39
DX: J06.9 Acute upper respiratory infection, unspecified (principal); J45.20 Mild intermittent asthma, uncomplicated; I10 Essential (primary) hypertension; Z20.822 Contact with and (suspected) exposure to COVID-19; Z88.8 Allergy status to other drugs, medicaments and biological substances
CPT/HCPCS: 93005; 87040 ×2; 85025; 80048; 36415; 83735; 85610; 80076; 84484; 83880; 71275; 71045; 96375; 96374; 99285; U0003; Q9967; J2930